=== PATIENT | female | born 1970 | race Two or more races ===

== ENCOUNTER 2024-01-04 10:10 | Emergency (ER) | payer OTHER, SELFPAY ==
[~2024-01-04] VITALS: Ht 152.4 cm; Wt 63.6 kg
--- NOTE | 2024-01-04 10:45 | ED.PDOC ---
CPR-HPI HPI Comments 53Y F with PMHx brain CA and seizures presents to ED via EMS for chief complaint CPR. Per EMS, pt's daughter called 911 because pt was experiencing SOB since last night and this morning while changing the pt's diaper, the daughter noticed pt did not have a pulse. Pt's daughter states that the brain CA was no longer being treated and platelet count was decreasing. Per EMS, call was initially received at 0942 and time of arrival to scene is unknown. Upon EMS arrival to scene, BS was low and en route pt received a total of 3 epis and D10 from paramedics. No ROSC. Pt's rhythm was going between PEA and asystole with EMS. Pt arrived to ED at 1009 with CPR being performed. Total downtime prior to ED arrival 45 mins. Time Seen by MD: 10:09 Reviewed Notes: Cold Roller Notes, Medications, Allergies Allergies: Coded Allergies: NO KNOWN ALLERGIES (Unverified , 01/04/24) Information Source: Relative (Child), Emergency Med Personnel, Spouse Mode of Arrival: EMS Brought in by: EMS Timing: Minutes Duration: Total time prior hopital: (45mins) Onset: At rest, Witnessed Available Hx: Other Inital rhythm: PEA Treatment: CPR, Epinephrine Response: No response Associated signs and symptoms: Dyspnea Past Medical History PAST MEDICAL HISTORY: Cancer Surgical History: Unknown GENERAL PRACTICE History: Unknown Family History Family History: Unknown Social History Smoker: Unknown Alcohol: Unknown Drugs: Unknown Lives In: Home Unable to Obtain due to: Intubated, Other Physical Exam General Appearance: Other (unresponsive) HEENT: Other (pupils fixed and dilated) Neck: NOT DONE Respiratory: Other (no spontaneous respiration. bag ventilation ) Cardiovascular: Other (pulseless and asystolic without CPR) Breast Exam: Deferred Gastrointestinal: NOT DONE Genitalia: Other (not done) Pelvic: Other (not done) Rectal: Other (not done) Extremities: NOT DONE Neurologic: Other (unresponsive) Cerebellar Function: NOT DONE Reflexes: NOT DONE Skin: Other (pale and cool to touch) Lymphatic: NOT DONE Was a procedure done? Was a procedure done?: No Differential Dx CPR Differential Diagnosis: Cardiopulmonary arrest, Electrolyte disorder, Respiratory Failure X-Ray, Labs, Meds, VS Vital Signs Date Time Temp Pulse Resp B/P (MAP) Pulse Ox O2 Delivery O2 Flow Rate FiO2 01/04/24 10:50 0 01/04/24 10:48 Ambu-Bag Time of 1ST Reevaluation: 10:39 Reevaluation 1ST: Unchanged Patient Education/Counseling: Pt Unresponsive Family Education/Counseling: Diagnosis Additional Information pt has brain cancer, per daughter, and . she has been declining fast, so fast that chemo had to be held. all night, she struggled to breathe. prior to calling 911, pt was witnessed to slowly stopping to breathe.more than 30 mins of rescusitation efforts failed to regain ROSC. pt was pronounced( see code sheet for time of . family is at facility and were updated, had time to spend with pt Departure 1 Departure Time of Disposition: 11:00 Impression: Primary Impression: Cardiac arrest Disposition: 20 Condition: Other () Critical Care Note Critical Care Time?: Yes (45 min-critical care time only) Critical care comment: due to the real possibility of patient's condition deteriorating, his care requires my highest attention and readiness to intervene. i assessed the patient, ordered the proper tests and treatments, reassessed him for response, formulated a plan, discussed it with medical personnel, and consultants,. total time include more than 50% face to face contact and does not include any procedures Heart Score Heart Score: Heart Score Response (Comments) Value History N/A 0 EKG N/A 0 Age N/A 0 Risk Factors N/A 0 Troponin N/A 0 Total 0 Stability Stability form required: No I personally scribed for PRICILLA BURDICK MD ([email or web address]) on 01/04/24 at 10:45. Electronically submitted by Codie Gifford ([email or web address]). PRICILLA BRUDICK MD Jan 04, 2024 10:45
--- NOTE | 2024-01-04 10:48 | RESUS ---
CODE HEATHER ASSESSSMENT History of Events History of Events: Secured code heather arrived at 1009 with CPR progress via manual compression device and EMS bagging with I/O to left leg. Per EMS 45 min downtime. Initial Information Date: Jan 04, 2024 Time: 10:09 Location of Arrest: ER Arrest Witnessed: Yes (per EMS) Type of arrest: Cardiac, Respiratory, Witnessed (Per EMS) Spontaneous Respirations: No Pulse Present: No Monitoring: ECG, Pulse Oximetry Crash Cart Opened and Supplies: Yes Airway Ventilation Breathing at Onset: Assisted Oxygen Delivery Method: Ambu-Bag Artificial Ventilation: Bag/Mask Comments: MULTIPLE ATTEMPTS AT INTUBATION-UNSUCCESSFUL Circulation Circulation #1: Time: 10:10 Pulse Rate (adult): 0 Blood Pressure Systolic: 0 Blood Pressure Diastolic: 0 Circulation Comment: [place]YSTOLE Circulation #2: Time: 10:12 Pulse Rate (adult): 0 Blood Pressure Systolic: 0 Blood Pressure Diastolic: 0 Circulation Comment: [place] Circulation #3: Time: 10:14 Pulse Rate (adult): 0 Blood Pressure Systolic: 0 Blood Pressure Diastolic: 0 Circulation Comment: [place] Circulation #4: Time: 10:16 Pulse Rate (adult): 0 Blood Pressure Systolic: 0 Blood Pressure Diastolic: 0 Circulation Comment: [place] Circulation #5: Time: 10:18 Pulse Rate (adult): 0 Blood Pressure Systolic: 0 Blood Pressure Diastolic: 0 Circulation Comment: [place]STOLE, TIME OF Defibrillation Defbrillation : Time Defibrillator Applied: 10:10 EKG Rhythm: Asystole Procedure - IV Procedure - IV : IV start time: 10:16 IV Side: Left IV Location: Antecubital IV Placed: RN IV Gauge: 22 IV Line Care: Saline Flush Procedure - Intraosseous Site of Intraosseous: Tibia freddy-medial (LEFT) Intraosseous inserted by: EMS Medications & Response Medications and Responses #1: Medication Time: 10:11 ADULT Medications Given ADULT: Epinephrine 1 mg Route of Administration: IO Medications and Responses #2: Medication Time: 10:14 ADULT Medications Given ADULT: D50 (amp) (BLOOD SUGAR READING "LOW" ON ACCUCHECK) Route of Administration: IO Medications and Responses #3: Medication Time: 10:15 ADULT Medications Given ADULT: Epinephrine 1 mg, Sodium Bacarbinate 50 meq Route of Administration: IO Nurses Notes Kirill Coma Scale Eye Opening: None (1) Kirill Coma Scale Verbal: None (1) Kirill Coma Scale Motor: None (1) Pupil Reaction: Non Reactive EKG Rhythm: Asystole Nurses Notes - Comment: FAMILY ON WAY TO HOSPITAL PER EMS Time Code Ended Post Arrest Status: Outcome of code: Unsuccessful Patient pronounced by: DR BURDICK Time patient pronounced: 10:18 Code Team Present: MIKE CHAIREZ RENEWABLE ENERGY PROJECT MANAGER, DOROTHY MANAGER INTERFACE, JALEEL RN, RESHMA RN, VIVIAN RT, KATERYNA RT, JEREMY GIFTS OFFICER, NEO GIFTS OFFICER, EMT STUDENT Mike Najera Jan 04, 2024 10:48
== END 2024-01-04 10:18 ==
LOC: ER 10:10 → EDBD 10:10 → ER 10:18
DX: I46.9 Cardiac arrest, cause unspecified (principal); F17.200 Nicotine dependence, unspecified, uncomplicated; Z85.841 Personal history of malignant neoplasm of brain
CPT/HCPCS: 92950; 99291